=== PATIENT | female | born 1995 | race Two or more races ===

== ENCOUNTER 2019-06-03 18:38 | Emergency (ER) | payer OTHER ==
[2019-06-03] MEDS ORDERED: Albuterol/Ipratropium 3.0-0.5 MG/3 ML Neb Soln NEB ONE (19:05)
[2019-06-03] MEDS ORDERED: predniSONE 20 MG Tab PO STA (19:05)
[2019-06-03] MEDS ORDERED: Cetirizine 10 MG Tab PO ONE (19:06)
[2019-06-03] MEDS ORDERED: Budesonide 0.5 MG/2 ML Neb Susp NEB ONE (19:07)
--- NOTE | 2019-06-03 19:16 | EDM.PDOC ---
ED HPI GENERAL MEDICAL PROBLEM - General Chief Complaint: Asthma Stated Complaint: ASTHMA ATTACK Time Seen by Provider: 06/03/19 19:00 Source of Information: Reports: Patient, Family History Limitations: Reports: No Limitations - History of Present Illness INITIAL COMMENTS - FREE TEXT/NARRATIVE: travelled down from [place] has history of asthma States since she arrived here symptoms of cough , sob and wheezing have progressively gotten worse has been using her albuterol INh with no good effect has no spacer , no steroid inhaler Onset: Gradual Onset Date: 05/31/19 Duration: Day(s): (4), Getting Worse Location: Reports: Chest Quality: Reports: Pressure Associated Symptoms: Reports: Malaise Treatments 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 Treatments - Related Data Allergies Allergy/AdvReac Type Severity Reaction Status Date / Time Penicillins Allergy Intermediate Rash Verified 06/03/19 18:47 Home Meds: Home Meds Albuterol Sulfate [Albuterol Sulfate Hfa] 2 inh INH Q4HR PRN 06/03/19 [History] Azithromycin [Zithromax] 250 mg PO DAILY #4 tab 06/03/19 [Rx] Benzonatate [Tessalon Perle] 100 mg PO TID #30 capsule 06/03/19 [Rx] Cetirizine [ZyrTEC] 10 mg PO DAILY #30 tab 06/03/19 [Rx] Inhaler, Assist Devices [Space Chamber Plus] 1 each MC Q4HR PRN #1 spacer [Rx] predniSONE [Prednisone] 40 mg PO DAILY #4 tablet 06/03/19 [Rx] Past Medical History Respiratory History: Reports: Asthma Social & Family History - Family History Family Medical History: Noncontributory - Tobacco Use Smoking Status *Q: Never Smoker - Caffeine Use Caffeine Use: Reports: None - Recreational Drug Use Recreational Drug Use: No ED ROS GENERAL - Review of Systems Review Of Systems: Comprehensive ROS is negative, except as noted in HPI. ED EXAM, GENERAL - Physical Exam Exam: See Below General Appearance: Alert, WD/WN Eye Exam: Bilateral Eye: EOMI Ears: Normal External Exam Ear Exam: Bilateral Ear: TM normal Nose: Clear Rhinorrhea Throat/Mouth: Normal Inspection, Normal Oropharynx Head: Atraumatic, Normocephalic Neck: Supple, Non-Tender Respiratory/Chest: Decreased Breath Sounds, Rhonchi, Wheezing, Accessory Muscle Use Cardiovascular: Regular Rate, Rhythm Extremities: Normal Inspection, Normal Range of Motion Neurological: Alert, Oriented, CN II-XII Intact Psychiatric: Normal Affect Course - Vital Signs Last Recorded V/S: Last Vital Signs Temp 36.7 C 06/03/19 18:48 Pulse 88 06/03/19 20:40 Resp 20 06/03/19 20:40 BP 126/71 06/03/19 20:40 Pulse Ox 97 06/03/19 20:40 - Orders/Labs/Meds Orders: Active Orders 24 hr Category Date Time Status RT Aerosol Therapy [RC] ASDIRECTED Care 06/03/19 19:05 Active RT Aerosol Therapy [RC] ASDIRECTED Care 06/03/19 19:07 Active RT Aerosol Therapy [RC] ASDIRECTED Care 06/03/19 20:06 Active Meds: Medications Discontinued Medications Generic Name Dose Route Start Last Admin Trade Name Freq PRN Reason Stop Dose Admin Albuterol 2.5 mg 06/03/19 20:05 06/03/19 20:10 Proventil Neb Soln NEB 06/03/19 20:06 2.5 mg ONETIME ONE Administration Albuterol Confirm 06/03/19 20:07 06/03/19 21:09 Proventil Neb Soln Administered 06/03/19 20:08 Not Given Dose 2.5 mg .ROUTE .STK-MED ONE Albuterol/Ipratropium 3 ml 06/03/19 19:05 06/03/19 19:18 Duoneb 3.0-0.5 Mg/3 Ml NEB 06/03/19 19:06 3 ml ONETIME ONE Administration Azithromycin 500 mg 06/03/19 20:42 06/03/19 20:59 Zithromax PO 06/03/19 20:43 500 mg ONETIME ONE Administration Budesonide 0.5 mg 06/03/19 19:07 06/03/19 19:18 Pulmicort NEB 06/03/19 19:08 0.5 mg ONETIME ONE Administration Cetirizine HCl 10 mg 06/03/19 19:06 06/03/19 19:18 Zyrtec PO 06/03/19 19:07 10 mg ONETIME ONE Administration Prednisone 40 mg 06/03/19 19:05 06/03/19 19:18 Prednisone PO 06/03/19 19:06 40 mg NOW STA Administration - Re-Assessments/Exams Free Text/Narrative Re-Assessment/Exam: 06/04/19 14:37 pt given duoneb with good effect but wheezing did not resolve was given 2nd neb : albuterol , and prednisone added symptoms did improve though did no resolve 06/04/19 14:38 Departure - Departure Time of Disposition: 20:45 Disposition: Home, Self-Care 01 Condition: Fair Clinical Impression: Acute exacerbation of asthma with allergic rhinitis, Bronchospasm with bronchitis, acute - Discharge Information *PRESCRIPTION DRUG MONITORING PROGRAM REVIEWED*: Not Applicable *COPY OF PRESCRIPTION DRUG MONITORING REPORT IN PATIENT GENNY: Not Applicable Prescriptions: Inhaler, Assist Devices [Space Chamber Plus] 1 each MC Q4HR PRN #1 spacer PRN Reason: Dyspnea Azithromycin [Zithromax] 250 mg PO DAILY #4 tab Benzonatate [Tessalon Perle] 100 mg PO TID #30 capsule Cetirizine [ZyrTEC] 10 mg PO DAILY #30 tab predniSONE [Prednisone] 40 mg PO DAILY #4 tablet Instructions: Asthma Attack Prevention, Adult Referrals: PCP,None [Primary Care Provider] - Forms: ED Department Discharge Additional Instructions: 1) use inhaler with spacer every 4-6hrs as needed 2) If symptoms get worse , return to the ER or [facility] 3) Call with any concerns Sepsis Event Note - Evaluation Sepsis Screening Result: No Definite Risk - Focused Exam Date Exam was Performed: 06/04/19 Time Exam was Performed: 14:34 - My Orders Last 24 Hours: My Active Orders 06/03/19 19:05 RT Aerosol Therapy [RC] ASDIRECTED 06/03/19 19:07 RT Aerosol Therapy [RC] ASDIRECTED 06/03/19 20:06 RT Aerosol Therapy [RC] ASDIRECTED - Assessment/Plan Last 24 Hours: My Active Orders 06/03/19 19:05 RT Aerosol Therapy [RC] ASDIRECTED 06/03/19 19:07 RT Aerosol Therapy [RC] ASDIRECTED 06/03/19 20:06 RT Aerosol Therapy [RC] ASDIRECTED
[2019-06-03] MEDS ORDERED: Albuterol 0.083% 2.5 MG/3 ML Neb Soln NEB ONE (20:05)
[2019-06-03] MEDS ORDERED: Albuterol 0.083% 2.5 MG/3 ML Neb Soln ONE (20:07)
[2019-06-03] MEDS ORDERED: Azithromycin 500 MG Tab PO ONE (20:42)
== END 2019-06-03 21:00 | disposition home or self-care (01) ==
LOC: FB.ED 18:38
DX: J45.901 Unspecified asthma with (acute) exacerbation (principal); Z88.0 Allergy status to penicillin
CPT/HCPCS: 94640; 99284-25; A9270-GY; J7620-GY